=== PATIENT | female | born 1985 | race American Indian/Alaskan Native ===

== ENCOUNTER 2016-05-24 19:59 | Outpatient (CLI) | payer MEDICAID ==
[2016-05-24 23:21] VITALS: BP 100/52
--- NOTE | 2016-05-25 07:45 | Ultrasound Report ---
BIOPHYSICAL PROFILE: INDICATION: Nonreassuring NST. COMPARISON: None similar. TECHNIQUE: Transabdominal ultrasound with Doppler interrogation. 2 - breathing movements 2 - movements 2 - posture and tone 2 - Qualitative amniotic fluid volume 8 - TOTAL SCORE OF POSSIBLE 8 Heart Rate (bpm) 165
== END 2016-05-25 00:37 | disposition home or self-care (01) ==
LOC: TRG 19:59 → LD 05-25 00:02 → TRG 05-25 00:06
PROVIDERS: ATTEND Obstetrics & Gynecology Gynecology
DX: O62.0 Primary inadequate contractions (principal); O77.9 Labor and delivery complicated by fetal stress, unspecified; Z3A.39 39 weeks gestation of pregnancy
CPT/HCPCS: 59025; 76819

== ENCOUNTER 2016-05-25 19:12 | Outpatient (CLI) | payer MEDICAID ==
[2016-05-25 19:37] VITALS: BP 104/68
== END 2016-05-25 20:20 | disposition home or self-care (01) ==
LOC: TRG 19:12
PROVIDERS: ATTEND Obstetrics & Gynecology
DX: O77.9 Labor and delivery complicated by fetal stress, unspecified (principal); O47.9 False labor, unspecified; Z3A.00 Weeks of gestation of pregnancy not specified

== ENCOUNTER 2016-05-26 15:49 | Inpatient (IN) | payer MEDICAID ==
--- NOTE | 2016-05-26 18:07 | History and Physical Report ---
History of Present Illness Date of examination: 05/26/16 Chief complaint: Labor History of present illness: Pt is a 30yo BF EDC 05/29/16; EGA 39 4/7 weeks presents to L&D complaining of RUC's q 3-5 mins. She received care at [facility] since 30 weeks and course has been unremarkable except for late care and history of previous c section for Twins. records are available and GBS is Negative. 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 Family/Genetic History: none Social history: no significant social history, single - Obstetrical History Expected Date of Delivery: 05/29/16 Actual Gestation: 39 Week(s) 4 Day(s) : 7 Medications and Allergies Allergies Allergy/AdvReac Type Severity Reaction Status Date / Time No Known Allergies Allergy Verified 10/04/14 17:15 Home Medications Medication Instructions Recorded Confirmed Last Taken Type Vit 15/Iron Cb/FA/Dss 1 each PO DAILY #30 tablet 02/01/13 01/28/15 Unknown Rx [ Ad Tablet] Ondansetron [Zofran Odt] 4 mg PO Q6H PRN 10/04/14 01/28/15 Unknown History Ferrous Sulfate [Feosol 325 MG tab] 325 mg PO BID #60 tablet 01/27/15 Unknown Rx HYDROcodone/APAP 5-325 [[place] 1 each PO Q6HR PRN #30 tablet 01/27/15 Unknown Rx 5/325] Ibuprofen [Motrin] 800 mg PO Q8HR PRN #30 tablet 01/27/15 Unknown Rx Pnv with Ca,No.72/Iron/FA 1 each PO DAILY #30 tablet 01/27/15 Unknown Rx [ Plus Tablet] Doxylamine/Pyridoxine HCl 1 each PO Q6HR PRN #30 tablet. 10/12/15 Unknown Rx [Jorge Gordillo 10-10 mg Tablet] Vit W-Ca,Fe,FA(<1 mg) 1 each PO QDAY #30 tablet 10/12/15 Unknown Rx [ Vitamins] Review of Systems All systems: negative - Vital Signs Vital signs: Vital Signs Pulse Pulse Ox 78 94 05/26/16 16:46 05/26/16 16:46 Temp Pulse Resp BP Pulse Ox 75 112/70 94 05/26/16 16:47 05/26/16 16:47 05/26/16 16:46 - Physical Exam Cardiovascular: Regular rate Lungs: Positive: Clear to auscultation Abdomen: Positive: normal appearance Genitourinary (Female): Positive: normal external genitalia Uterus: Positive: enlarged Extremities: Positive: normal - Obstetrical FHR: category 1 Uterine Contraction Monitor Mode: External Cervical Dilatation: 3.5 Cervical Effacement Percentage: 50 station: -2 Uterine Contraction Pattern: Irregular Uterine Contraction Intensity: Mild Results All other labs normal. Assessment and Plan - Patient Problems (1) Previous delivery affecting Diagnosis Date: 05/26/16 Current Visit: Yes Status: Acute Plan to address problem: A: IUP @ 39 4/7 weeks in labor Previous C Section - Pt desires TOLAC P: Admit to L&D for Expectant vaginal delivery ().
[2016-05-26] MEDS ORDERED: SUBLIMAZE IV PRN (18:08)
[2016-05-26] MEDS ORDERED: BRETHINE IVP PRN (18:08)
[2016-05-26] MEDS ORDERED: ZOFRAN IV PRN (18:08)
[2016-05-26] MEDS ORDERED: ePHEDrine SULFATE IV PRN (18:08)
[2016-05-26] MEDS ORDERED: BRETHINE SUB-Q PRN (18:08)
[2016-05-26] MEDS ORDERED: POLYCILLIN/NS 2 GM/100 ML 100 ML IV ONE (18:08)
[2016-05-26] MEDS ORDERED: STADOL IV PRN (18:08)
[2016-05-26] MEDS ORDERED: PHENERGAN PO PRN (18:08)
[2016-05-26] MEDS ORDERED: NARCAN 0.4 MG/1 ML IV PRN (18:08)
[2016-05-26] MEDS ORDERED: MINERAL OIL PO PRN (18:08)
[2016-05-26] MEDS ORDERED: PITOCin/NS 20 UNIT/1000ML DRIP 1,000 ML IV SCH (19:00)
[2016-05-26] MEDS ORDERED: PITOCin/NS 30 UNIT/500ML 500 ML IV SCH (19:00)
[2016-05-26] MEDS ORDERED: LACTATED RINGERS 1,000 ML IV SCH (19:00)
[2016-05-26] MEDS: PITOCin/NS 30 UNIT/500ML 500 ML IV SCH ×4 (21:06→23:15)
[2016-05-26 21:48] LABS: Hematocrit 34.4 % (30.3-42.9); Hemoglobin 10.9 gm/dl (10.1-14.3); Mean Corpuscular HGB Conc 32 % (30-34); Mean Corpuscular Hemoglobin 27 pg (28-32); Mean Corpuscular Volume 86 fl (79-97); Platelet Count 161 K/mm3 (140-440); White Blood Count 10.5 K/mm3 (4.5-11.0)
[2016-05-26 21:53] LABS: Red Cell Distribution Width 20.4 % (13.2-15.2)
[2016-05-26] MEDS ORDERED: POLYCILLIN/NS 1 GM/50 ML 50 ML IV SCH (22:00)
[2016-05-27] MEDS ORDERED: XYLOCAINE 2% INFILTRATI ONE (01:27)
--- NOTE | 2016-05-27 01:42 | Procedure Note ---
OB Delivery Note - Delivery Date of Delivery: 05/27/16 Surgeon: BALA BOWMAN Estimated blood loss: 200cc - Vaginal Delivery presentation: vertex Delivery position: OA Intrapartum events: mult.variable deceleratio Delivery induction: none Delivery augmentation: pitocin Delivery monitor: external FHT, external uterine Route of delivery: Delivery placenta: spontaneous Delivery cord: nuchal cord, 3 umbilical vessels Episiotomy: none Delivery laceration: 1st degree (left labial) Delivery repair: vicryl Anesthesia: intravenous - Infant A at 1 minute: 8 at 5 minutes: 9 Infant Gender: Male (3043gms)
[2016-05-27] MEDS ORDERED: PERCOCET 5/325 PO ONE (01:43)
[2016-05-27] MEDS ORDERED: BENADRYL PO PRN (01:44)
[2016-05-27] MEDS ORDERED: PHENERGAN PR PRN (01:44)
[2016-05-27] MEDS ORDERED: PHENERGAN PO PRN (01:44)
[2016-05-27] MEDS ORDERED: DULCOLAX PR PRN (01:44)
[2016-05-27] MEDS ORDERED: ZOFRAN IV PRN (01:44)
[2016-05-27] MEDS ORDERED: TYLENOL PO PRN (01:44)
[2016-05-27] MEDS ORDERED: TUCKS PAD TP PRN (01:44)
[2016-05-27] MEDS ORDERED: NORCO 5/325 PO PRN (01:44)
[2016-05-27] MEDS ORDERED: MILK OF MAGNESIA PO PRN (01:44)
[2016-05-27] MEDS ORDERED: DERMOPLAST TP PRN (01:44)
[2016-05-27] MEDS ORDERED: LANSINOH TP PRN (01:44)
[2016-05-27] MEDS ORDERED: PITOCin/NS 20 UNIT/1000ML DRIP 1,000 ML IV SCH (02:00)
[2016-05-27] MEDS ORDERED: SODIUM CHLORIDE FLUSH SYRINGE 10 ML IV PRN (02:00)
[2016-05-27] MEDS: MOTRIN PO SCH ×2 (03:07→17:09)
[2016-05-27] MEDS: FEOSOL PO SCH (09:36)
[2016-05-27] MEDS: PRENATAL VITAMIN PO SCH (09:36)
[2016-05-27] MEDS: COLACE PO SCH (09:36)
[2016-05-27 14:27] LABS: Hematocrit 30.5 % (30.3-42.9); Hemoglobin 9.8 gm/dl (10.1-14.3)
[2016-05-28] MEDS: MOTRIN PO SCH ×3 (00:02→12:16)
[2016-05-28] MEDS: FEOSOL PO SCH ×2 (00:02→12:16)
[2016-05-28] MEDS: COLACE PO SCH (00:02)
[2016-05-28] MEDS ORDERED: M-M-R II VACCINE SUB-Q ONE (01:44)
[2016-05-28] MEDS ORDERED: BOOSTRIX IM ONE (06:00)
--- NOTE | 2016-05-28 07:24 | Progress Note ---
Assessment and Plan PPD# 1 s/p -Doing well P: -Continue routine care -Anticipate discharge in 24-48 hours - Patient Problems (1) (normal spontaneous vaginal delivery) Current Visit: Yes Status: Acute Subjective - Subjective Date of service: 05/28/16 Principal diagnosis: PPD# 1 Interval history: Patient seen and examined, stable doing well. No issues Patient reports: appetite normal, voiding normally, pain well controlled, ambulating normally, no dizzy ambulation : doing well Objective - Vital Signs Latest vital signs: Vital Signs Temp Pulse Resp BP 05/27/16 23:30 98.3 F 83 20 119/60 05/27/16 16:04 98.2 F 73 20 103/55 05/27/16 12:43 97.9 F 80 20 104/46 05/27/16 08:52 98.2 F 83 20 109/59 Intake and Output 05/27/16 05/28/16 05/28/16 22:59 06:59 14:59 Intake Total 720 480 Balance 720 480 Intake: Oral 720 480 Other: Total, Intake Amount 240 240 # Voids Void 1 1 - Exam Abdomen: Present: normal appearance, soft. Absent: distention, tenderness, guarding, rigidity - Labs Labs: Abnormal lab results 05/27/16 Range/Units 14:00 Hgb 9.8 L (10.1-14.3) gm/dl
--- NOTE | 2016-05-28 07:26 | Discharge Summary ---
Providers - Providers Date of Admission: 05/26/16 18:51 Date of discharge: 05/29/16 Attending physician: BALA BOWMAN Primary care physician: MANUEL MARTINEZ Hospitalization Reason for admission: active labor, IUP at term Delivery: Episiotomy: none Laceration: 1st degree Incision: normal, dry Other procedures: none complications: none Discharge diagnosis: IUP at term delivered [place] baby: male Hospital course: Uncomplicated course Condition at discharge: Good Disposition: DISCHARGED TO HOME OR SELFCARE - Discharge Diagnoses (1) (normal spontaneous vaginal delivery) Status: Acute Plan - Provider Discharge Summary Activity: no sex for 6 weeks, no heavy lifting 4 weeks, no strenuous exercise Diet: routine Additional instructions: [] Smoking cessation referral if applicable(refer to patient education folder for contact #) [] Refer to [facility] Booklet Call your doctor immediately for: * Fever > 100.5 * Heavy vaginal bleeding ( >1 pad per hour) * Severe persistent headache * Shortness of breath * Reddened, hot, painful area to leg or breast * Drainage or odor from incision. * Keep incision clean and dry at all times and follow doctor's instructions regarding bathing/showering - Follow up plan Follow up: MANUEL MARTINEZ MD [Primary Care Provider] - 6 Weeks
[2016-05-28] MEDS: PRENATAL VITAMIN PO SCH (12:16)
[2016-05-28 16:50] VITALS: BP 109/63
== END 2016-05-28 19:32 | disposition home or self-care (01) | DRG 775 ==
LOC: TRG 15:49 → LD 18:51 → OB 05-27 04:13
PROVIDERS: ADMIT Obstetrics & Gynecology; ATTEND Obstetrics & Gynecology
PROC: 10E0XZZ Delivery of Products of Conception, External Approach (ICD-10-PCS; principal; 2016-05-27)
PROC: 0HQ9XZZ Repair Perineum Skin, External Approach (ICD-10-PCS; 2016-05-27)
DX: O76 Abnormality in fetal heart rate and rhythm complicating labor and delivery (principal); O70.0 First degree perineal laceration during delivery; Z37.0 Single live birth; Z3A.39 39 weeks gestation of pregnancy; O69.81X0 Labor and delivery complicated by cord around neck, without compression, not applicable or unspecified; O34.219 Maternal care for unspecified type scar from previous cesarean delivery
CPT/HCPCS: 36415; 85014; 85018; 85027; 86850; 86900; 86901; 99211; A6250; G0463; J0595; J2590; J3010; J7120

== ENCOUNTER 2018-11-09 11:33 | Outpatient (CLI) | payer MEDICAID ==
[2018-11-09 12:11] VITALS: BP 103/60
== END 2018-11-09 15:00 | disposition home or self-care (01) ==
LOC: TRG 11:33
PROVIDERS: ATTEND Obstetrics & Gynecology
DX: O47.1 False labor at or after 37 completed weeks of gestation (principal); Z3A.38 38 weeks gestation of pregnancy
CPT/HCPCS: 59025

== ENCOUNTER 2018-11-12 01:38 | Inpatient (IN) | payer MEDICAID ==
[2018-11-12] MEDS ORDERED: BRETHINE SUB-Q PRN ×2 (02:51→09:29)
[2018-11-12] MEDS ORDERED: MINERAL OIL PO PRN ×2 (02:51→09:29)
[2018-11-12] MEDS ORDERED: SUBLIMAZE IV PRN (02:51)
[2018-11-12] MEDS ORDERED: BRETHINE IVP PRN ×2 (02:51→09:29)
[2018-11-12] MEDS ORDERED: XYLOCAINE 2% INFILTRATI ONE ×2 (02:51→09:29)
[2018-11-12] MEDS ORDERED: STADOL IV PRN (02:51)
[2018-11-12] MEDS ORDERED: AMPICILLIN/NS 2 GM/100 ML 2 GM/100 ML BAG IV ONE (02:51)
[2018-11-12] MEDS ORDERED: PITOCin/NS 20 UNIT/1000ML DRIP 20 UNITS/1,000 ML BAG IV SCH ×3 (03:00→15:00)
[2018-11-12] MEDS: LACTATED RINGERS 1,000 ML IV SCH ×2 (04:48→06:26)
[2018-11-12 04:54] LABS: Hematocrit 30.6 % (30.3-42.9); Hemoglobin 10.3 gm/dl (10.1-14.3); Mean Corpuscular HGB Conc 34 % (30-34); Mean Corpuscular Volume 84 fl (79-97); Platelet Count 180 K/mm3 (140-440); Red Blood Count 3.67 M/mm3 (3.65-5.03); Red Cell Distribution Width 16.7 % (13.2-15.2)
[2018-11-12] MEDS ORDERED: NARCAN 2 MG/2 ML IV PRN (05:39)
--- NOTE | 2018-11-12 05:41 | Anesthesia Consultation ---
Anesthesia Consult and Med Hx Date of service: 11/12/18 - Airway Anesthetic Teeth Evaluation: Good ROM Head & Neck: Adequate Mental/Hyoid Distance: Adequate Mallampati Class: Class II Intubation Access Assessment: Probably Good - Pulmonary Exam CTA: Yes - Cardiac Exam Cardiac Exam: RRR - Pre-Operative Health Status ASA Pre-Surgery Classification: ASA2 Proposed Anesthetic Plan: Epidural - Pulmonary Hx Asthma: No COPD: No Hx Pneumonia: No - Cardiovascular System Hx Hypertension: No - Central Nervous System Hx Seizures: No Hx Psychiatric Problems: No - Gastrointestinal Hx Gastroesophageal Reflux Disease: Yes - Endocrine Hx Renal Disease: No Hx End Stage Renal Disease: No Hx Hypothyroidism: No Hx Hyperthyroidism: No - Hematic Hx Anemia: Yes Hx Sickle Cell Disease: No - Other Systems Hx Alcohol Use: No
--- NOTE | 2018-11-12 05:42 | Anesthesia Day of Surgery ---
Anesthesia Day of Surgery - Day of Surgery Patient Examined: Yes Patient H&P Reviewed: Yes
[2018-11-12] MEDS ORDERED: fentaNYL-BUPIV 2 MCG/ML-0.125% 200 MCG/100 ML BAG EPIDURAL SCH (06:00)
[2018-11-12] MEDS ORDERED: AMPICILLIN/NS 1 GM/50 ML 1 GM/50 ML BAG IV SCH (06:52)
--- NOTE | 2018-11-12 09:28 | History and Physical Report ---
History of Present Illness Date of examination: 11/12/18 Date of admission: 11/12/18 03:00 Chief complaint: Labor History of present illness: Pt is a 32yo BF EDC 11/19/18; EGA 39 0/7 weeks presents to L&D complaining of RUC's q 3-4 mins. She denies bleeding or ROM. She received care at [facility] since 10 weeks and co-managed by [facility] for previous C Section followed by x 4. Fetus has a right hydrocephalus that needs follow up with Pediatric urology. records are available and GBS is unknown. 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 History: syphilis Social history: no significant social history, single, - Obstetrical History Expected Date of Delivery: 11/19/18 Actual Gestation: 39 Week(s) 0 Day(s) : 9 Medications and Allergies Allergies Allergy/AdvReac Type Severity Reaction Status Date / Time No Known Allergies Allergy Verified 10/04/14 17:15 Home Medications Medication Instructions Recorded Confirmed Last Taken Type Vit 15/Iron Cb/FA/Dss 1 each PO DAILY #30 tablet 02/01/13 01/28/15 Unknown Rx [ Ad Tablet] Ondansetron [Zofran Odt] 4 mg PO Q6H PRN 10/04/14 01/28/15 Unknown History Ferrous Sulfate [Feosol 325 MG tab] 325 mg PO BID #60 tablet 01/27/15 Unknown Rx HYDROcodone/APAP 5-325 [[place] 1 each PO Q6HR PRN #30 tablet 01/27/15 Unknown Rx 5/325] Ibuprofen [Motrin] 800 mg PO Q8HR PRN #30 tablet 01/27/15 Unknown Rx Pnv,Calcium 72/Iron/Folic Acid 1 each PO DAILY #30 tablet 01/27/15 Unknown Rx [ Plus Tablet] Doxylamine Succinate/Vit B6 1 each PO Q6HR PRN #30 tablet. 10/12/15 Unknown Rx [Jorge Gordillo 10-10 mg Tablet] Vit Calc,Iron,Folic 1 each PO QDAY #30 tablet 10/12/15 Unknown Rx [ Vitamins] Ibuprofen [Motrin 600 MG tab] 600 mg PO Q8H PRN #30 tablet 05/28/16 Unknown Rx Multivitamin with Iron 1 each PO DAILY #30 tablet 05/28/16 Unknown Rx [Multivitamins with Iron] Active Meds: Active Medications Butorphanol Tartrate (Stadol) 2 mg IV Q2H PRN PRN Reason: Pain , Severe (7-10) Ephedrine Sulfate (Ephedrine Sulfate) 10 mg IV Q2M PRN PRN Reason: Hypotension Last Admin: 11/12/18 06:05 Dose: 10 mg Documented by: Fentanyl (Sublimaze) 100 mcg IV Q2H PRN PRN Reason: Labor Pain Oxytocin/Sodium Chloride (Pitocin/Ns 20 Unit/1000ml Drip) 20 units in 1,000 mls @ 125 mls/hr IV DIRECT MELISSA Lactated Ringer's (Lactated Ringers) 1,000 mls @ 125 mls/hr IV DIRECT MELISSA Last Admin: 11/12/18 06:26 Dose: 125 mls/hr Documented by: Ampicillin Sodium (Ampicillin/Ns 1 Gm/50 Ml) 1 gm in 50 mls @ 100 mls/hr IV Q4HR MELISSA; Protocol Last Admin: 11/12/18 09:16 Dose: 100 mls/hr Documented by: Fentanyl/Bupivacaine/Sodium Chlor (Fentanyl-Bupiv 2 Mcg/Ml-0.125%) 200 mcg in 100 mls @ 12 mls/hr EPIDURAL TITR MELISSA; Protocol Last Admin: 11/12/18 06:18 Dose: 12 mls/hr Documented by: Mineral Oil (Mineral Oil) 30 ml PO QHS PRN PRN Reason: Constipation Naloxone HCl (Narcan 2 Mg/2 Ml) 0.2 mg IV Q5M PRN PRN Reason: Respiratory sedation Terbutaline Sulfate (Brethine) 0.25 mg SUB-Q ONCE PRN PRN Reason: Hyperstimulation/Hypertonicity Terbutaline Sulfate (Brethine) 0.25 mg IVP ONCE PRN PRN Reason: Hyperstimulation/Hypertonicity Review of Systems All systems: negative - Vital Signs Vital signs: Vital Signs Pulse BP 80 122/70 11/12/18 01:48 11/12/18 01:48 Temp Pulse Resp BP Pulse Ox 97.9 F 82 20 101/64 98 11/12/18 07:30 11/12/18 09:24 11/12/18 07:30 11/12/18 09:24 11/12/18 09:23 - Physical Exam Abdomen: Positive: normal appearance, soft Genitourinary (Female): Positive: normal external genitalia Uterus: Positive: enlarged Extremities: Positive: normal - Obstetrical FHR: category 1 Uterine Contraction Monitor Mode: External Cervical Dilatation: 8 Cervical Effacement Percentage: 80 station: -2 Uterine Contraction Pattern: Regular Uterine Tone Measurement Phase: Contraction Uterine Contraction Intensity: Mild Results Result Diagrams: 11/12/18 04:06 Abnormal lab results 11/12/18 Range/Units 04:06 RDW 16.7 H (13.2-15.2) % All other labs normal. Assessment and Plan - Patient Problems (1) 39 weeks gestation of Onset Date: 11/12/18 Current Visit: Yes Status: Acute Plan to address problem: A: IUP @ 39 0/7 weeks in labor Previous x 4 Unknown GBS P: Admit to L&D for expectant vaginal delivery IV Ampicillin (2) Previous section Onset Date: 11/12/18 Current Visit: Yes Status: Acute
[2018-11-12] MEDS ORDERED: ZOFRAN IV PRN ×2 (09:29→14:03)
[2018-11-12] MEDS ORDERED: LACTATED RINGERS 1,000 ML IV SCH (10:00)
[2018-11-12] MEDS ORDERED: PITOCin/NS 30 UNIT/500ML 30 UNITS/500 ML BAG IV SCH ×2 (10:00)
[2018-11-12] MEDS ORDERED: MARCAINE 0.25% INFILTRATI ONE (12:38)
--- NOTE | 2018-11-12 14:00 | Procedure Note ---
OB Delivery Note - Delivery Date of Delivery: 11/12/18 Surgeon: BALA BOWMAN Estimated blood loss: 200cc - Vaginal Delivery presentation: vertex Delivery position: OA Intrapartum events: none Delivery induction: none Delivery augmentation: rupture of membranes, pitocin Delivery monitor: external FHT, external uterine Route of delivery: Delivery placenta: spontaneous Delivery cord: 3 umbilical vessels Episiotomy: none Delivery laceration: none Anesthesia: epidural Delivery comments: delivered OA and placed on Mom's chest for [id number] bonding and delayed cord clamping, cut by Grandma - A at 1 minute: 8 at 5 minutes: 9 Gender: Male (3464gms)
[2018-11-12] MEDS ORDERED: PHENERGAN PO PRN (14:03)
[2018-11-12] MEDS ORDERED: MILK OF MAGNESIA PO PRN (14:03)
[2018-11-12] MEDS ORDERED: BENADRYL PO PRN (14:03)
[2018-11-12] MEDS ORDERED: TUCKS PAD TP PRN (14:03)
[2018-11-12] MEDS ORDERED: DULCOLAX PR PRN (14:03)
[2018-11-12] MEDS ORDERED: TYLENOL PO PRN (14:03)
[2018-11-12] MEDS ORDERED: LANSINOH TP PRN (14:03)
[2018-11-12] MEDS ORDERED: NORCO 5/325 PO PRN (14:03)
[2018-11-12] MEDS ORDERED: PHENERGAN PR PRN (14:03)
[2018-11-12] MEDS ORDERED: SODIUM CHLORIDE FLUSH SYRINGE 10 ML IV NR (15:00)
[2018-11-12] MEDS: IBUPROFEN PO SCH ×2 (15:00→21:20)
[2018-11-12] MEDS: COLACE PO SCH (21:20)
[2018-11-12] MEDS: FEOSOL PO SCH (21:20)
[2018-11-13 01:51] LABS: Hematocrit 30.6 % (30.3-42.9); Hemoglobin 9.9 gm/dl (10.1-14.3)
[2018-11-13] MEDS: IBUPROFEN PO SCH ×4 (03:08→22:30)
[2018-11-13] MEDS ORDERED: M-M-R II VACCINE SUB-Q ONE (06:00)
[2018-11-13] MEDS ORDERED: BOOSTRIX IM ONE (06:00)
--- NOTE | 2018-11-13 08:51 | Progress Note ---
Assessment and Plan - Patient Problems (1) 39 weeks gestation of Onset Date: 11/12/18 Current Visit: Yes Status: Resolved (2) Previous section Onset Date: 11/12/18 Current Visit: Yes Status: Resolved (3) (normal spontaneous vaginal delivery) Onset Date: 11/13/18 Current Visit: No Status: Resolved Plan to address problem: A: S/P - PPD #1 Doing well +RPR 1:1 titer P: May go home tomorrow Follow up with ID (Dr Estevez). Subjective - Subjective Date of service: 11/13/18 Principal diagnosis: s/p - PPD #1 Interval history: Pt is feeling well without complaints. Bleeding improved. Patient reports: appetite normal, voiding normally, pain well controlled, flatus, ambulating normally, no dizzy ambulation, no nauseated [place]: doing well, nursing well Objective - Vital Signs Latest vital signs: Vital Signs Temp Pulse Resp BP BP Pulse Ox 11/13/18 05:25 97.6 F 76 18 90/51 97 11/13/18 00:00 97.9 F 68 18 96/54 98 11/12/18 21:05 98.2 F 81 18 111/65 98 11/12/18 15:16 90 107/56 11/12/18 15:01 121 H 114/53 11/12/18 14:46 97 H 112/60 11/12/18 14:31 102 H 117/68 11/12/18 14:24 98.1 F 20 11/12/18 14:16 92 H 115/58 11/12/18 14:03 96 H 121/60 11/12/18 13:56 93 H 109/59 11/12/18 13:51 94 H 117/56 11/12/18 13:46 96 H 121/57 11/12/18 13:39 126 H 105/57 11/12/18 13:25 95 H 96/52 11/12/18 13:10 100 H 94/54 11/12/18 12:56 94 H 103/59 11/12/18 12:44 96 H 104/62 11/12/18 12:39 101 H 114/61 11/12/18 12:25 91 H 104/69 11/12/18 12:10 94 H 104/59 98 11/12/18 12:05 84 100 06/26/19 11:54 100 H 113/58 11/12/18 11:40 88 114/68 11/12/18 11:25 83 109/57 11/12/18 11:09 82 114/63 11/12/18 10:54 92 H 107/68 11/12/18 10:39 88 106/66 11/12/18 10:24 86 116/61 11/12/18 10:09 86 105/65 11/12/18 09:55 89 102/64 11/12/18 09:39 86 107/63 11/12/18 09:28 91 H 98 11/12/18 09:24 82 101/64 11/12/18 09:23 91 H 98 11/12/18 09:18 86 97 11/12/18 09:13 83 98 11/12/18 09:10 85 99/60 11/12/18 08:54 99 H 104/62 Intake and Output 11/12/18 11/13/18 11/13/18 22:59 06:59 14:59 Intake Total 400 480 Output Total 400 Balance 0 480 Intake: Intake, Free Water 400 480 Output: Urine 400 Void 400 Other: Total, Output Amount 400 # Voids Void 2 2 - Exam Breasts: Present: deferred Abdomen: Present: normal appearance, soft Uterus: Present: normal, firm, fundal height below umbilicus Extremities: Present: normal - Labs Labs: Abnormal lab results 11/13/18 Range/Units 01:29 Hgb 9.9 L (10.1-14.3) gm/dl Laboratory Tests 11/12/18 11/12/18 11/12/18 04:06 04:06 04:06 WBC 10.6 RBC 3.67 Hgb 10.3 Hct 30.6 MCV 84 MCH 28 MCHC 34 RDW 16.7 H Plt Count 180 RPR Titer 1:1 RPR Reactive Blood Type O POSITIVE Antibody Screen Negative 11/13/18 01:29 WBC RBC Hgb 9.9 L Hct 30.6 MCV MCH MCHC RDW Plt Count RPR Titer RPR Blood Type Antibody Screen
--- NOTE | 2018-11-13 09:35 | Discharge Summary ---
Providers - Providers Date of Admission: 11/12/18 03:00 Date of discharge: 11/14/18 Attending physician: BALA BOWMAN Primary care physician: BALA BOWMAN Hospitalization Reason for admission: active labor, IUP at term Delivery: Episiotomy: none Laceration: none Other procedures: none complications: none Discharge diagnosis: IUP at term delivered [place] baby: male Hospital course: Unremarkable. Condition at discharge: Good Disposition: DC-01 TO HOME OR SELFCARE - Discharge Diagnoses (1) 39 weeks gestation of Status: Resolved (2) Previous section Status: Resolved (3) (normal spontaneous vaginal delivery) Status: Resolved Plan - Discharge Medications Prescriptions: Ferrous Sulfate [Feosol 325 MG tab] 325 mg PO BID #60 tablet Ibuprofen [Motrin 600 MG tab] 600 mg PO Q6H #30 tablet Vit-Fe Fumar-FA [ Vitamin] 1 each PO QDAY #30 tablet - Provider Discharge Summary Activity: routine, no sex for 6 weeks, no heavy lifting 4 weeks, no strenuous exercise Diet: routine Instructions: routine Additional instructions: [] Smoking cessation referral if applicable(refer to patient education folder for contact #) [] Refer to [facility] Booklet Call your doctor immediately for: * Fever > 100.5 * Heavy vaginal bleeding ( >1 pad per hour) * Severe persistent headache * Shortness of breath * Reddened, hot, painful area to leg or breast * Drainage or odor from incision. * Keep incision clean and dry at all times and follow doctor's instructions regarding bathing/showering - Follow up plan Follow up: BALA BOWMAN MD [Primary Care Provider] - 6 Weeks TK JACOBSON CNM [Advanced Practice Nurse] - 6 Weeks KASIA VIEIRA MD [Referring] - 14 Days
[2018-11-13] MEDS: COLACE PO SCH ×2 (10:08→22:30)
[2018-11-13] MEDS: PRENATAL VITAMIN PO SCH (10:08)
[2018-11-13] MEDS: FEOSOL PO SCH ×2 (10:08→22:30)
[2018-11-14] MEDS: IBUPROFEN PO SCH ×2 (03:54→09:00)
[2018-11-14 08:34] VITALS: BP 112/66
[2018-11-14] MEDS: FEOSOL PO SCH (08:59)
[2018-11-14] MEDS: COLACE PO SCH (08:59)
[2018-11-14] MEDS: PRENATAL VITAMIN PO SCH (08:59)
== END 2018-11-14 19:00 | disposition home or self-care (01) | DRG 775 ==
LOC: TRG 01:38 → OBSVTOIN 03:00 → LD 03:00 → OB 16:55
PROVIDERS: ADMIT Obstetrics & Gynecology; ATTEND Obstetrics & Gynecology
PROC: 10E0XZZ Delivery of Products of Conception, External Approach (ICD-10-PCS; principal; 2018-11-12)
PROC: 3E0R3BZ Introduction of Anesthetic Agent into Spinal Canal, Percutaneous Approach (ICD-10-PCS; 2018-11-12)
PROC: 00HU33Z Insertion of Infusion Device into Spinal Canal, Percutaneous Approach (ICD-10-PCS; 2018-11-12)
PROC: 3E0234Z Introduction of Serum, Toxoid and Vaccine into Muscle, Percutaneous Approach (ICD-10-PCS; 2018-11-13)
DX: O34.211 Maternal care for low transverse scar from previous cesarean delivery (principal); O99.62 Diseases of the digestive system complicating childbirth; K21.9 Gastro-esophageal reflux disease without esophagitis; Z3A.39 39 weeks gestation of pregnancy; Z37.0 Single live birth; Z23 Encounter for immunization
CPT/HCPCS: 36415; 59025; 85014; 85018; 85027; 86592; 86593; 86780; 86850; 86900; 86901; G0378; J0290; J2590; J7120

== ENCOUNTER 2019-11-20 06:17 | Emergency (ER) | payer MEDICAID ==
[2019-11-20 08:26] LABS: Bilirubin,Urine NEG (Negative); Blood,Urine NEG (Negative); Color,Urine Straw (Yellow); Protein,Urine <15 mg/dL mg/dL (Negative); Urobilinogen,Urine < 2.0 mg/dL (<2.0)
[2019-11-20 08:34] LABS: HCG Qualitative,Urine Negative (Negative)
--- NOTE | 2019-11-20 08:34 | Emergency Department Report ---
ED Back Pain/Injury HPI - General Chief Complaint: Back Pain/Injury Stated Complaint: RIGHT SIDE/RIGHT BACK PAIN, DIFFICULTY BREATHING Time Seen by Provider: 11/20/19 07:49 Source: patient Limitations: No Limitations - History of Present Illness Initial Comments: This is a 34-year-old female presents the ED complaining of right-sided lower back/flank pain that began around 6:30 PM last night. Patient states pain started around time and worsened around 3 AM this morning which is when she decided to come to the ER. Patient states pain is worsened with any kind of movement. Patient states that she does recall having a discomfort/burning with urination but otherwise denies fever/chills/nausea vomiting/abdominal pain/chest pain/shortness of breath. She denies any injury or trauma or falls. Similar Symptoms Previously: No Place: home Quality: stabbing, aching Consistency: constant Improves With: immobilization Worsens With: movement, deep breaths/cough Associated Symptoms: denies: confusion, weakness, numbness, difficulty walking, constipation, headaches - Related Data Home Medications Medication Instructions Recorded Confirmed Last Taken Ondansetron [Zofran Odt] 4 mg PO Q6H PRN 10/04/14 01/28/15 Unknown Previous Rx's Medication Instructions Recorded Last Taken Type Vit 15/Iron Cb/FA/Dss 1 each PO DAILY #30 tablet 02/01/13 Unknown Rx [ Ad Tablet] Ferrous Sulfate [Feosol 325 MG tab] 325 mg PO BID #60 tablet 01/27/15 Unknown Rx HYDROcodone/APAP 5-325 [[place] 1 each PO Q6HR PRN #30 tablet 01/27/15 Unknown Rx 5/325] Pnv,Calcium 72/Iron/Folic Acid 1 each PO DAILY #30 tablet 01/27/15 Unknown Rx [ Plus Tablet] Doxylamine Succinate/Vit B6 1 each PO Q6HR PRN #30 [place]. 10/12/15 Unknown Rx [Jorge Gordillo 10-10 mg Tablet] Vit Calc,Iron,Folic 1 each PO QDAY #30 tablet 10/12/15 Unknown Rx [ Vitamins] Ibuprofen [Motrin 600 MG tab] 600 mg PO Q8H PRN #30 tablet 05/28/16 Unknown Rx Multivitamin with Iron 1 each PO DAILY #30 tablet 05/28/16 Unknown Rx [Multivitamins with Iron] Ferrous Sulfate [Feosol 325 MG tab] 325 mg PO BID #60 tablet 11/13/18 Unknown Rx Ibuprofen [Motrin 600 MG tab] 600 mg PO Q6H #30 tablet 11/13/18 Unknown Rx Vit-Fe Fumar-FA [ 1 each PO QDAY #30 tablet 11/13/18 Unknown Rx Vitamin] Ibuprofen [Motrin 800 MG tab] 800 mg PO Q8HR PRN #30 tablet 11/20/19 Unknown Rx Allergies Allergy/AdvReac Type Severity Reaction Status Date / Time No Known Allergies Allergy Verified 10/04/14 17:15 ED Review of Systems ROS: Stated complaint: RIGHT SIDE/RIGHT BACK PAIN, DIFFICULTY BREATHING Other details as noted in HPI Comment: All other systems reviewed and negative ED Back Pain Physical Exam - Exam General: Vital signs noted. No distress. Alert and acting appropriately. Back/Abdomen: Yes Flank Tenderness (Right-sided), No Abdominal Tenderness, No Perithoracic Tenderness, No Perilumbar Tenderness, No Sacroiliac Tenderness, No Straight Leg Raise Pain Neuro: Yes Normal Sensation, Yes Normal DTR's, Yes Normal Gait, No Motor Weakness ED Course Vital Signs 11/20/19 06:20 Temperature 97.8 F Pulse Rate 79 Respiratory 18 Rate Blood Pressure 101/61 O2 Sat by Pulse 100 Oximetry Ed Back Pain Tests - Tests Tests: Normal UA ED Medical Decision Making - Lab Data Laboratory Last Values Urine Color Straw (Yellow) 11/20/19 Unknown Urine Turbidity Clear (Clear) 11/20/19 Unknown Urine pH 6.0 (5.0-7.0) 11/20/19 Unknown Ur Specific [place] 1.019 (1.003-1.030) 11/20/19 Unknown Urine Protein <15 mg/dl mg/dL (Negative) 11/20/19 Unknown Urine Glucose (UA) Neg mg/dL (Negative) 11/20/19 Unknown Urine Ketones Neg mg/dL (Negative) 11/20/19 Unknown Urine Blood Neg (Negative) 11/20/19 Unknown Urine Nitrite Neg (Negative) 11/20/19 Unknown Urine Bilirubin Neg (Negative) 11/20/19 Unknown Urine Urobilinogen < 2.0 mg/dL (<2.0) 11/20/19 Unknown Ur Leukocyte Esterase Neg (Negative) 11/20/19 Unknown Urine WBC (Auto) 2.0 /HPF (0.0-6.0) 11/20/19 Unknown Urine RBC (Auto) 1.0 /HPF (0.0-6.0) 11/20/19 Unknown U Epithel Cells (Auto) 2.0 /HPF (0-13.0) 11/20/19 Unknown Urine HCG, Qual Negative (Negative) 11/20/19 Unknown - Medical Decision Making This 34-year-old female presents with right-sided low back pain most likely due to muscle strain. Urinalysis negative test negative. Patient received pain medication in the ED today. Discussed urine findings with the patient. Discussed with patient to follow-up with primary care physician in clinic within 3 days. Vital signs are stable patient is in no acute distress. Critical care attestation.: If time is entered above; I have spent that time in minutes in the direct care of this critically ill patient, excluding procedure time. ED Disposition Clinical Impression: Lower back pain, Right-sided low back pain without sciatica Disposition: TO HOME OR SELFCARE Is pt being admited?: No Does the pt Need Aspirin: No Condition: Stable Instructions: Low Back Strain (ED), Acute Low Back Pain (ED), Flank Pain (ED) Additional Instructions: Make sure to follow up with the primary care physician as discussed. Take all your medications as you've been prescribed. Apply heat therapy 3 times a day to your low back If you have any worsening symptoms or develop new symptoms please return to ED immediately. Prescriptions: Ibuprofen [Motrin 800 MG tab] 800 mg PO Q8HR PRN #30 tablet PRN Reason: Pain Referrals: PRIMARY CARE, [Primary Care Provider] - 3-5 Days [facility] [Outside] - 3-5 Days [facility] [Outside] - 3-5 Days [facility] [Provider Group] - 3-5 Days [facility] [Provider Group] - 3-5 Days [facility] [Provider Group] - 3-5 Days Forms: Work/School Release Form Time of Disposition: 08:51
[2019-11-20] MEDS ORDERED: KETOROLAC 30 MG/1 ML INJ IM ONE (08:45)
[2019-11-20] MEDS ORDERED: predniSONE 20 MG TAB PO ONE (08:45)
[2019-11-20 09:55] VITALS: BP 97/61
== END 2019-11-20 09:25 | disposition home or self-care (01) ==
LOC: ED 06:17
DX: M54.5 Low back pain (principal); Z79.1 Long term (current) use of non-steroidal anti-inflammatories (NSAID); Z79.899 Other long term (current) drug therapy
CPT/HCPCS: 81001; 81025; 96372; 99283; J1885; J7512